=== PATIENT | female | born 1970 | race Asian ===

== ENCOUNTER 2017-11-01 07:29 | Outpatient (CLI) | payer OTHER ==
[~2017-11-01 07:29] MED LIST: ATEN25TA21 PO; LIVALO; LIVILO; METF500T PO; OMEP40CA PO; OMEPRAZOLE40 MG PO; [UNRECOGNIZED DRUG - SUPPLY]; [UNRECOGNIZED DRUG - SUPPLY]
== END 2017-11-01 21:47 | disposition home or self-care (01) ==
LOC: RAD 07:29
DX: R10.84 Generalized abdominal pain (principal)

== ENCOUNTER 2018-10-02 08:50 | Emergency (ER) | payer OTHER ==
[~2018-10-02] VITALS: Ht 172.7 cm; Wt 119.3 kg
[2018-10-02 10:29] LABS: PLATELET COUNT 306 K/uL (152-353)
[2018-10-02 10:48] LABS: POTASSIUM 4.7 mmol/L (3.6-5.2)
[2018-10-02 14:27] VITALS: BP 158/93; TEMP 97.9
== END 2018-10-02 14:27 | disposition home or self-care (01) ==
LOC: ED 08:50
PROVIDERS: Family Medicine
DX: K58.9 Irritable bowel syndrome, unspecified (principal)
CPT/HCPCS: 36415; 80053; 81000; 85027; 99283; Q9963

== ENCOUNTER 2019-07-24 13:30 | Emergency (ER) | payer BC ==
[~2019-07-24] VITALS: Ht 172.7 cm; Wt 118.4 kg
[2019-07-24 15:45] VITALS: BP 142/89; TEMP 98.2
== END 2019-07-24 15:45 | disposition home or self-care (01) ==
LOC: ED 13:30
DX: J06.9 Acute upper respiratory infection, unspecified (principal)
CPT/HCPCS: 87502; 87651; 99283

== ENCOUNTER 2020-02-22 17:55 | Emergency (ER) | payer BC ==
[~2020-02-22] VITALS: Ht 172.7 cm; Wt 119.3 kg
[2020-02-22 19:08] LABS: SODIUM 140 mmol/L (136-145)
[2020-02-22 19:11] LABS: PLATELET COUNT 280 K/uL (152-353)
[2020-02-22 19:19] LABS: PARTIAL THROMBOPLASTIN TIME 25.9 SECONDS (24.5-33.6)
[2020-02-22 19:51] VITALS: BP 136/94; TEMP 98.3
== END 2020-02-22 19:52 | disposition home or self-care (01) ==
LOC: ED 17:55
PROVIDERS: Hospitalist
DX: J06.9 Acute upper respiratory infection, unspecified (principal); Z20.828 Contact with and (suspected) exposure to other viral communicable diseases; R19.7 Diarrhea, unspecified; R06.02 Shortness of breath
CPT/HCPCS: 36415; 80053; 82550; 83880; 84484; 85027; 85610; 85730; 87502; 87635; 87651; 93005; 96374; 96375; 99284; G2023; J1100; J2405; U00003